=== PATIENT | female | born 1975 | race Caucasian/White ===

== ENCOUNTER 2020-01-23 06:40 | Outpatient (CLI) | payer BC, SELFPAY ==
--- NOTE | ~2020-01-23 | XR_ITS ---
EXAMINATION: XR chest 2V DATE: 01/23/2020 07:03 INDICATION: Shortness of breath. TECHNIQUE: Frontal and lateral views of the chest were obtained. COMPARISON: None. FINDINGS: The chest demonstrates clear lungs without pneumonia, pleural effusion, or pneumothorax. Th e heart size is normal. There is mild chronic anterior wedging of vertebral bodies at thoracolumbar j unction. IMPRESSION: 1. No acute cardiopulmonary disease. Reviewed, dictated and finalized at location A.
== END 2020-01-23 06:41 | disposition home or self-care (01) ==
PROVIDERS: PCP Family Medicine; Visit Provider Family Medicine
DX: R06.02 Shortness of breath (principal)
CPT/HCPCS: 71046

== ENCOUNTER 2020-03-31 06:43 | Outpatient (CLI) | payer BC, SELFPAY ==
--- NOTE | ~2020-03-31 | XR_ITS ---
EXAMINATION: XR foot RT min 3V DATE: 03/31/2020 07:05 INDICATION: Right foot pain TECHNIQUE: Dorsoplantar, lateral, and 2 oblique views of the right foot were obtained. COMPARISON: 06/12/2013 FINDINGS: There is subtle heterotopic ossification adjacent to the lateral base of the fifth metatars al. No acute fracture is identified. Bone alignment is normal. The joint spaces are unremarkable. A p lantar calcaneal enthesophyte is noted. IMPRESSION: 1. Subtle heterotopic ossification near the lateral base of the fifth metatarsal which could reflect prior injury. Reviewed, dictated and finalized at location A. [facility] [employer] IMPRESSION: 1. Subtle heterotopic ossification near the lateral base of the fifth metatarsa l which could reflect prior injury.
== END 2020-03-31 06:44 | disposition home or self-care (01) ==
PROVIDERS: PCP Family Medicine; Visit Provider Physician Assistant
DX: M79.671 Pain in right foot (principal)
CPT/HCPCS: 73630

== ENCOUNTER 2021-05-08 10:40 | Emergency (ER) | payer BC, SELFPAY ==
[2021-05-08 10:50] VITALS: BP 117/79; PULSE 98; RESP 16; TEMP 37.2; O2SAT 100
--- NOTE | 2021-05-08 11:20 | ED.URI ---
HPI - URI/Sore Throat General Chief Complaint: Upper Respiratory Infection Stated Complaint: Cold Time Seen by Provider: 05/08/21 11:22 Source: patient Mode of arrival: ambulatory Limitations: no limitations History of Present Illness HPI Narrative: 45-year-old female presented for complaint of sinus pressure/congestion x4 days, endorses ear pressure, headache and feels like it is moving to the chest. Endorses nonproductive cough and chest tightness. She has tried Mucinex and DayQuil and without significant relief in symptoms. Denies chest pain or shortness of breath, nausea, vomiting, diarrhea, fever or chills. MD elicited complaint: cough Related Data Allergies Allergy/AdvReac Type Severity Reaction Status Date / Time latex Allergy Unknown Skin Verified 04/21/21 10:54 Reaction Review of Systems Review of Systems: CONSTITUTIONAL: Denies malaise, chills, sweats, fever. EYES: Denies visual changes, redness, or discharge. ENT: Reports rhinorrhea, congestion, sinus pain, otalgia CARDIOVASCULAR: Denies chest pain, palpitations, or edema. RESPIRATORY: Reports cough, post nasal drainage. Denies dyspnea. GASTROINTESTINAL: Denies abdominal pain, nausea, vomiting, diarrhea SKIN: Denies rash or itching. MUSCULOSKELETAL: myalgia. NEUROLOGIC: Denies headache. [facility] Past Medical History Medical History Chronic migraine w/o aura w/o status migrainosus, not intractable Influenzal pneumonia Migraine Obesity (BMI 30.0-34.9) Plantar fascial fibromatosis Family History Family History Other Diabetes mellitus Family history of headache disorder Family history of malignant neoplasm Hypertension Social History Social History Alcohol intake: current Exam Narrative: GENERAL: Ill-appearing, nontoxic no acute distress. HEAD: Normocephalic EYES: PERRLA, conjunctivae clear ENT: Mucous membranes moist. TM pearly tan with dull light reflex bilaterally; no tragal tenderness. Oropharynx erythematous without lesions or exudate, no drooling, no hoarseness, no trismus, uvula midline. NECK: Supple. No lymphadenopathy CHEST: Clear to auscultation, breath sounds equal. No wheezing, rhonchi, rales, or stridor. No respiratory distress, speaks in full sentences. HEART: Regular rate and rhythm. No murmur heard. SKIN: Warm, dry, no rash. NEURO: Alert and oriented x3. PSYCH: Normal mood and affect Course Course Emergency Course: covid neg Patient is aware of diagnosis, understands and agrees to treatment plan. Anticipatory guidance given. Patient agrees to follow-up as directed and is aware of reasons to seek care at the emergency department. Portions of this record may have been created with voice recognition software Level of Care: Express Care Visit Vital Signs Vital signs: Vital Signs Temperature 98.9 F 05/08/21 10:50 Pulse Rate 98 05/08/21 10:50 Respiratory Rate 16 05/08/21 10:50 Blood Pressure 117/79 05/08/21 10:50 Pulse Oximetry 100 05/08/21 10:50 Temperature 98.9 F 05/08/21 10:50 Pulse Rate 98 05/08/21 10:50 Respiratory Rate 16 05/08/21 10:50 Blood Pressure 117/79 05/08/21 10:50 Pulse Oximetry 100 05/08/21 10:50 reviewed MDM - URI/Sore Throat Differential Diagnosis Differential diagnosis: Likely upper respiratory infection, sinusitis and viral infection Lab Data Attestation: I reviewed the patient's lab results. Discharge Plan Discharge Patient Disposition: Home, Self-Care Condition: Stable Instructions: Antibiotic Form Additional Instructions: Your Rapid COVID test was negative today. If you are symptomatic with reason to believe you have COVID-19, there is a high possibility your rapid test may not have detected the virus. You should follow appropriate guidelines regarding quarantine, hand washing,
== END 2021-05-08 11:48 | disposition home or self-care (01) ==
PROVIDERS: Emergency Provider Nurse Practitioner Family; PCP Family Medicine
DX: J06.9 Acute upper respiratory infection, unspecified (principal); Z20.822 Contact with and (suspected) exposure to COVID-19; E66.9 Obesity, unspecified; Z68.35 Body mass index [BMI] 35.0-35.9, adult
CPT/HCPCS: 87426; 99213; C9803; G0463

== ENCOUNTER 2021-07-06 15:05 | Outpatient (CLI) | payer BC, SELFPAY ==
--- NOTE | ~2021-07-06 | US_ITS ---
EXAMINATION: US pelvic complete w TV EXAM DATE: 07/06/2021 15:42 INDICATION: Heavy bleeding. TECHNIQUE: Pelvic transabdominal and transvaginal sonogram was performed. There are multiple graysca le and Doppler images available for interpretation. There is no prior study for comparison. FINDINGS: Uterus measures x 6.1 x 9.6 cm, with several fibroids identified measuring 4.7 and 3.4 cm. Uterus is retroverted. Endometrial stripe measures 11 mm, within normal limits. There is no free pelvic fluid. Right adnexa: The ovary measures 2.7 x 2.0 x 2.5 cm and is morphologically normal. Ovarian vascular f low confirmed. Left adnexa: The ovary is not identified. There is no adnexal mass. IMPRESSION: 1. Uterine fibroids. Reviewed, dictated and finalized at location B. IMPRESSION: 1. Uterine fibroids.
== END 2021-07-06 15:06 | disposition home or self-care (01) ==
LOC: ANHIMG 15:09
PROVIDERS: PCP Family Medicine; Visit Provider Family Medicine
DX: N92.1 Excessive and frequent menstruation with irregular cycle (principal); D25.9 Leiomyoma of uterus, unspecified; D50.9 Iron deficiency anemia, unspecified
CPT/HCPCS: 76830; 76856

== ENCOUNTER 2021-07-20 11:27 | Emergency (ER) | payer BC, SELFPAY ==
--- NOTE | ~2021-07-20 | XR_ITS ---
EXAMINATION: XR knee RT 3V EXAM DATE: 07/20/2021 11:46 INDICATION: Right knee pain/limited range of motion. TECHNIQUE: Three projections of the right knee. Comparison is made to prior examination from 12/13/2018 . FINDINGS: No evidence osteochondral defect or joint body in the right knee joint. There is moderate medial patellofemoral compartment primary osteoarthritis. There is otherwise mild primary osteoarthr itis. There are no acute fractures or dislocations identified. There is no subcutaneous gas. The so ft tissue is unremarkable. There are no radiopaque foreign bodies. No joint effusion. IMPRESSION: 1. Moderate medial patellofemoral compartment osteoarthritis. 2. No acute findings. Reviewed, dictated and finalized at location B.
--- NOTE | 2021-07-20 11:35 | ED.EXTPRO ---
HPI - Extremity Problem General Chief complaint: Extremity Injury, Lower Stated complaint: right knee Time Seen by Provider: 07/20/21 11:33 Source: patient, RN notes reviewed and old records reviewed Mode of arrival: ambulatory Limitations: no limitations History of Present Illness HPI Narrative: 45-year-old female presents to the [facility] with complaints of right knee pain. States she does have chronic pain, states the pain got worse yesterday. Took some ibuprofen Tylenol yesterday, nothing today. Has been seen by her primary care provider in the past for the same. No new injury. Related Data Allergies Allergy/AdvReac Type Severity Reaction Status Date / Time latex Allergy Unknown Skin Verified 07/20/21 11:36 Reaction Review of Systems Review of Systems: All systems reviewed & are unremarkable except as noted in HPI and below Constitutional: Constitutional: Reports no additional constitutional complaints, Denies chills and Denies fever(s) Eyes: Eyes: Reports no additional eye complaints ENT: Reports system reviewed and no additional complaints, except as documented Cardiovascular: Cardiovascular: Reports no additional cardiovascular complaints Respiratory: Respiratory: Reports no additional respiratory complaints Gastrointestinal: Gastrointestinal: Reports no additional gastrointestinal complaints Musculoskeletal: Musculoskeletal: Reports as per HPI, Reports arthralgias (Right knee) and Reports joint swelling (Right knee) Integumentary/Breasts: Skin/Breast: Reports system reviewed and no additional complaints, except as docu Neurologic: Reports system reviewed and no additional complaints, except as documented Psychiatric: Psychiatric: Reports no additional psychiatric complaints Allergic/Immunologic: Allergic/Immunologic: Reports no additional allergic/immunologic complaints PMFSH Past Medical History Medical History Chronic migraine w/o aura w/o status migrainosus, not intractable Influenzal pneumonia Migraine Obesity (BMI 30.0-34.9) Plantar fascial fibromatosis Family History Family History Other Diabetes mellitus Family history of headache disorder Family history of malignant neoplasm Hypertension Social History Social History Alcohol intake: current Comments At the time of my signature, I reviewed and agree with the nursing past medical, surgical, social, and family history. There is no relevant family history pertinent to the patient complaint. Exam Const: General: healthy appearing, no acute distress and alert Nutritional Appearance: well nourished Orientation/consciousness: patient oriented x3 Limitations: no limitations HENMT: Head: normal to inspection Ears: external ears normal Eyes: Pupils: Equal, round and reactive pupils present Neck: Neck: normal visual inspection, no lymphadenopathy and no meningeal signs Chest: Chest palpation & inspection: normal inspection of the chest Resp: Effort & Inspection: normal respiratory effort and no use of accessory muscles Cardio: Rate: regular rate Back/Spine/Pelvis: Back: no CVA tenderness Skin: General skin exam: normal color Rashes: no rashes Wounds: no wounds Neuro: General: patient oriented x3, moves all extremities, no meningeal signs and no focal motor deficits Cranial nerves: Yes Equal, round and reactive pupils present Speech: normal speech Gait exam (Neuro): Normal gait present Extrem: General: normal exam except as noted and no pedal edema Right lower extremity: knee Details: tenderness (Lateral aspect), swelling (Lower medial aspect), normal ROM and knee ligament exam normal; no abrasions, no lacerations, no ecchymosis, no crepitus, no deformity and no unusual warmth Psych: Appearance: grossly normal and well kempt Mental Status: mental stat
[2021-07-20 11:36] VITALS: BP 125/84; PULSE 78; RESP 16; TEMP 36.8; O2SAT 100
[2021-07-20 11:37] VITALS: BP 125/84; PULSE 78; RESP 16; TEMP 36.8; O2SAT 100
[2021-07-20 11:48] VITALS: BP 125/84; PULSE 78; RESP 16; TEMP 36.8; O2SAT 100
== END 2021-07-20 12:12 | disposition home or self-care (01) ==
PROVIDERS: Emergency Provider Nurse Practitioner; PCP Family Medicine
DX: M17.11 Unilateral primary osteoarthritis, right knee (principal); E66.9 Obesity, unspecified; Z68.35 Body mass index [BMI] 35.0-35.9, adult; F41.9 Anxiety disorder, unspecified
CPT/HCPCS: 73562; 99213; G0463

== ENCOUNTER 2023-12-25 10:29 | Emergency (ER) | payer OTHER, SELFPAY ==
[2023-12-25 11:03] VITALS: BP 121/71; PULSE 74; RESP 16; TEMP 36.9; O2SAT 100
--- NOTE | 2023-12-25 12:08 | ED.URI ---
HPI - URI/Sore Throat General Chief Complaint: Upper Respiratory Infection Stated Complaint: Head Congestion,Chest Pain,Sinus Problems Time Seen by Provider: 12/25/23 12:01 Source: patient and RN notes reviewed Mode of arrival: ambulatory Limitations: no limitations History of Present Illness HPI Narrative: Patient presents today with a one-week history of sinus pressure, cough, congestion, postnasal drip. Patient also reports some chest wall pain with coughing and occasional shortness of breath with coughing episodes. Denies any history of asthma or COPD. She has been taking some DayQuil and cough medicine without much relief. Related Data Home Medications Medication Instructions Recorded Confirmed calcium carbonate 500 mg PO DAILY 07/28/21 12/25/23 cholecalciferol (vitamin D3) 25 25 mcg PO DAILY 07/28/21 12/25/23 mcg (1,000 unit) capsule topiramate 50 mg tablet 50 mg PO BID 12/25/23 12/25/23 Allergies Allergy/AdvReac Type Severity Reaction Status Date / Time latex Allergy Unknown Skin Verified 12/25/23 11:47 Reaction Review of Systems Review of Systems: CONSTITUTIONAL: Denies body aches, fever, chills, or sweats. EYES: Denies visual changes, redness, or discharge. ENT: Denies rhinorrhea, sore throat, or otalgia.+ congestion, postnasal drainage, sinus pressure CARDIOVASCULAR: Denies chest pain, palpitations, or edema. RESPIRATORY: + cough, chest wall pain, occasional shortness of breath GASTROINTESTINAL: Denies abdominal pain, nausea, vomiting, or diarrhea. GENITOURINARY: Denies dysuria or hematuria. SKIN: Denies rash, itching, or wounds. MUSCULOSKELETAL: Denies back pain, joint pain, or myalgia. NEUROLOGIC: Denies headache, numbness, tingling, or weakness. PSYCH: Denies depression or anxiety. [facility] Past Medical History Medical History Anxiety Chronic migraine w/o aura w/o status migrainosus, not intractable Depression, major, recurrent Influenzal pneumonia Iron deficiency anemia Latex allergy status Menometrorrhagia Migraine Osteoarthritis of right knee Plantar fascial fibromatosis Vitamin D deficiency, unspecified Surgical History Surgical History History of section Family History Family History Father Asthma Hypertension Mother Hypertension Depression Heart disease Grandparent Malignant neoplasm of prostate Diabetes mellitus Other Family history of headache disorder Family history of malignant neoplasm Social History Social History Smoking status: Never smoker Alcohol intake: current Substance use: never Comments At time of signature, I have reviewed and agree with nursing past medical, surgical, social and family history unless otherwise noted. Please see nursing chart for further information. There is no relevant family history pertinent to the presenting complaint Exam Narrative: GENERAL: Mildly ill-appearing, well-nourished, and in no acute distress. HEAD: Normocephalic, atraumatic. EYES: EOMI. No redness or drainage. Conjunctivae normal. ENT: Mucous membranes pink and moist. Nares congested with rhinorrhea. TMs normal bilaterally. Throat normal. Uvula midline. NECK: Normal AROM. Supple. No lymphadenopathy. CHEST: No respiratory distress. Clear to auscultation. HEART: Regular rate and rhythm. No murmur appreciated. EXTREMITIES: Normal range of motion. No edema. SKIN: Warm, dry, no rash. Capillary refill normal. Normal skin turgor. NEURO: No focal deficits. Alert and oriented x3. Gait steady. PSYCH: Normal affect. No signs of depression or anxiety. Course Course Level of Care: Express Care Visit Vital Signs Vital signs: Vital Signs Temperature 98.4 F 12/25/23 11:03 Pulse R
== END 2023-12-25 12:24 | disposition home or self-care (01) ==
PROVIDERS: Emergency Provider Nurse Practitioner
DX: J40 Bronchitis, not specified as acute or chronic (principal); J06.9 Acute upper respiratory infection, unspecified; Z20.822 Contact with and (suspected) exposure to COVID-19; E55.9 Vitamin D deficiency, unspecified; M17.11 Unilateral primary osteoarthritis, right knee
CPT/HCPCS: 87635; 99213; G0463

== ENCOUNTER 2024-05-12 11:01 | Emergency (ER) | payer OTHER, SELFPAY ==
--- NOTE | ~2024-05-12 | XR_ITS ---
EXAMINATION: XR chest 2V DATE: 05/12/2024 11:51 INDICATION: Shortness of breath on exertion. Cough. TECHNIQUE: Frontal and lateral views of the chest were obtained. COMPARISON: Chest 2 views 01/23/2020 FINDINGS: There is no pneumonia, pleural effusion, or pneumothorax. The heart size is normal. There i s mild chronic anterior wedging of vertebral bodies at the thoracolumbar junction. IMPRESSION: 1. No acute cardiopulmonary disease. Reviewed, dictated and finalized at location A. [employer]CH[employer]ING [employer]
[2024-05-12 11:37] VITALS: BP 126/78; PULSE 70; RESP 16; TEMP 36.6; O2SAT 100
--- NOTE | 2024-05-12 11:42 | ED_ITS ---
HPI - URI/Sore Throat General Chief Complaint: Upper Respiratory Infection Stated Complaint: Congestion/Cough Time Seen by Provider: 05/12/24 11:45 Source: patient Mode of arrival: ambulatory Limitations: no limitations History of Present Illness HPI Narrative: Brent is a 48-year-old female patient presenting to the clinic today with complaints of cough, sinus congestion, and chest congestion x2 weeks. She reports that she is having some shortness of breath on exertion. Cough is nonproductive at this time. No known fevers or chills or body aches. Denies any chest pain but states that it chest does feel tight at times. MD elicited complaint: cough, nasal congestion, sinus pain and other (Chest congestion) Related Data Home Medications ?Medication ?Instructions ?Recorded ?Confirmed ?Last Taken ?Type calcium carbonate 500 mg PO DAILY 07/28/21 12/25/23 Unknown History cholecalciferol (vitamin D3) 25 25 mcg PO DAILY 07/28/21 12/25/23 Unknown History mcg (1,000 unit) capsule topiramate 50 mg tablet 50 mg PO BID 12/25/23 12/25/23 Unknown History Allergies Allergy/AdvReac Type Severity Reaction Status Date / Time latex Allergy Unknown Skin Verified 05/12/24 11:38 Reaction Review of Systems Review of Systems: Pertinent positives per HPI. Patient denies any fever, chills, rash, headache, visual changes, dizziness, chest pain, palpitations, nausea, vomiting, diarrhea, constipation, abdominal pain, or any urinary issues. [facility] Past Medical History Medical History Anxiety Chronic migraine w/o aura w/o status migrainosus, not intractable Depression, major, recurrent Influenzal pneumonia Iron deficiency anemia Latex allergy status Menometrorrhagia Migraine Osteoarthritis of right knee Plantar fascial fibromatosis Vitamin D deficiency, unspecified Surgical History Surgical History History of section Family History Family History Father Asthma Hypertension Mother Hypertension Depression Heart disease Grandparent Malignant neoplasm of prostate Diabetes mellitus Other Family history of headache disorder Family history of malignant neoplasm Social History Social History (Reviewed 05/12/24 @ 12:08 by BREANA Veloz Smoking status: Never smoker Alcohol intake: current Substance use: never Comments At the time of my signature, I reviewed and agree with the nursing past medical, surgical, social, and family history. There is no relevant family history pertinent to the patient complaint. Exam Narrative: General: Well-developed, well nourished, in no apparent distress Head: Normocephalic, atraumatic Eyes: Pupils equally round and reactive to light bilaterally, EOM intact, sclera and conjunctive clear, no discharge, lids normal Ears: TMs intact and congested, ear canals clear, no drainage, grossly hearing normal. Nose: Nares patent, clear nasal discharge, moderate inflammation, maxillary sinus tenderness. Mouth: Oral pharynx red without lesions or masses, good dentition, MMM. Postnasal drip Neck: Supple, trachea midline, no enlargement of anterior or posterior cervical nodes, no thyroid masses or goiter palpable. Cardio: Regular rate and rhythm, s1 and s2 normal, no murmur appreciated. Resp: Diminished in the bases, no rhonchi, rales, wheezing or rubs Course Course Emergency Course: Portions of this record may have been created with voice recognition software. Level of Care: Express Care Visit Vital Signs Vital signs: Vital Signs Temperature 36.6 C 05/12/24 11:37 Pulse Rate 70 05/12/24 11:37 Respiratory Rate 16 05/12/24 11:37 Blood Pressure 126/78 05/12/24 11:37 Pulse Oximetry 100 05/12/24 11:37 Temperature 36.6 C 05/12/24 11:37 Pulse Rate 70 05/12/24 11:37 Respiratory Rate 16 05/12/24 11:37 Blood Pressure 126/78 05/12/24 11:37 Pulse Oximetry 100 05/12/24 11:37 Vital signs reviewed MDM - URI/Sore Throat MDM Narrative Medical decision making narrative: At the time of visit patient is resting comfortably on the exam table. Patient appears to be nontoxic. Diagnostics: Chest x-ray was negative for any acute cardiopulmonary process. Plan: I suspect patient has sinusitis/bronchitis. Prescription for doxycycline, prednisone, and albuterol inhaler was sent to the pharmacy. Supportive measures were discussed with the patient and they voiced understanding discharge instructions and agrees to treatment plan. Return precautions reviewed Differential Diagnosis Differential diagnosis: Likely upper respiratory infection, otitis media, sinusitis, viral infection, bronchitis, influenza, pharyngitis and other (COVID, pneumonia) Imaging Data Radiologist's impression: ITS Impressions Chest X-Ray 05/12/24 11:52 IMPRESSION: 1. No acute cardiopulmonary disease. Discharge Plan Discharge Clinical Impression: Sinobronchitis Patient Disposition: Home, Self-Care Condition: Stable Instructions: Antibiotic Form, Sinusitis (ED), Acute Bronchitis (ED) Additional Instructions: Chest x-ray is negative for any acute cardiopulmonary process. Take prescription medications only as prescribed-albuterol inhaler, prednisone, and doxycycline Increase fluids and stay well hydrated Tylenol/motrin for pain/fever Flonase and OTC antihistamines as directed Vicks vapor rub to open sinuses Sinus rinses for congestion Cepacol spray, cough drops, throat lozenges, warm tea with honey/lemon, gargle salt water to soothe throat BRAT diet for diarrhea Clear liquids x 24 hours then advance as tolerated for nausea/vomiting Go to the ED if you develop a worsening in your condition- high fever not controlled by Tylenol or Motrin, dehydration, weakness, lethargy, shortness of breath, or chest pain. Follow up with your PCP in 3-5 days if symptoms persist. Patient Language: Maltese Prescriptions: New prednisone 20 mg tablet 40 mg PO DAILY 5 Days Qty: 10 0RF doxycycline monohydrate 100 mg capsule 100 mg PO BID 10 Days Qty: 20 0RF albuterol sulfate 90 mcg/actuation HFA aerosol inhaler 2 puff inhalation Q4-6H PRN (Reason: shortness of breath or wheezing) 30 Days Qty: 8.5 0RF No Action albuterol sulfate 90 mcg/actuation HFA aerosol inhaler 1 inh inhalation QID PRN (Reason: shortness of breath or wheezing) Qty: 8.5 0RF diclofenac sodium [Voltaren Arthritis Pain] 1 % gel 2 g topical QID Qty: 100 0RF Rx Instructions: Apply to knee topiramate 50 mg tablet 50 mg PO BID calcium carbonate 500 mg calcium (1,250 mg) tablet 500 mg PO DAILY cholecalciferol (vitamin D3) 25 mcg (1,000 unit) capsule 25 mcg PO DAILY Oriahnn 300-1-0.5mg(AM) /300 mg(PM) capsule, sequential See Rx Instructions PO .COMPLEX Qty: 56 0RF Rx Instructions: take 1 YELLOW (multi-ingredient) capsule each morning; take 1 BLUE (elagolix) capsule each evening PO escitalopram oxalate 20 mg tablet 20 mg PO DAILY Qty: 90 1RF ferrous sulfate 325 mg (65 mg iron) tablet 325 mg PO BID Qty: 180 0RF ascorbate calcium (vitamin C) 500 mg tablet 500 mg PO DAILY Qty: 180 0RF Rx Instructions: take with iron Follow-up/Referrals: PHYSICIAN,BUILD AND DEPLOYMENT ENGINEER [Primary Care Provider] - Time of Disposition: 12:04 Quality NIHSS Nursing Documentation ED NIHSS nursing documentation: reviewed/agree
== END 2024-05-12 12:10 | disposition home or self-care (01) ==
PROVIDERS: Emergency Provider Nurse Practitioner Family
DX: J32.9 Chronic sinusitis, unspecified (principal); J40 Bronchitis, not specified as acute or chronic; M17.11 Unilateral primary osteoarthritis, right knee; E55.9 Vitamin D deficiency, unspecified; D50.9 Iron deficiency anemia, unspecified; F41.9 Anxiety disorder, unspecified; F33.9 Major depressive disorder, recurrent, unspecified
CPT/HCPCS: 71046; 99213; G0463